=== PATIENT | male | born 1960 | race African-American/Black ===

== ENCOUNTER 2019-09-09 20:27 | Inpatient (IN) | payer MEDICARE ==
[2019-09-09] MEDS ORDERED: Dextrose 5% in Water 1,000 ML IV PRN (23:09)
[2019-09-09] MEDS ORDERED: HumaLOG 300 UNITS/3 ML VIAL SC PRN ×2 (23:09)
[2019-09-09] MEDS ORDERED: Ondansetron PF 4 MG/2 ML Vial IVP PRN (23:12)
[2019-09-09] MEDS ORDERED: Senokot S 8.6-50 MG TAB PO PRN (23:15)
[2019-09-09] MEDS ORDERED: Bisacodyl 5 MG TAB PO PRN (23:15)
[2019-09-09] MEDS ORDERED: Acetaminophen 325 MG TAB PO PRN (23:15)
[2019-09-09] MEDS ORDERED: Acetaminophen 650 MG Suppository PR PRN (23:15)
[2019-09-09] MEDS ORDERED: D5 1/2 NS w/10 mEq KCl 1,000 ML/1,000 ML BAG IV SCH (23:30)
--- NOTE | 2019-09-09 23:30 | PDOC.HHP ---
Hospitalist HPI - History of Present Illness Abdominal pain History of Present Illness: PCP: Unknown The patient is a 59/M with PMH significant for pancreatitis and DMII (on insulin ), and HLD that presents to the ER in [place] for the above complaint. The patient reports developing abdominal pain for the past month. Reports pain intensified yesterday, located epigastric, describes as aching and dull, 6/10, persistent and constant, exacerbated with eating and relieved by nothing. Reports unable to tolerate any oral intake for past 3-4 days. Denies ETOH intake. Denies vomiting and diarrhea, LBM yesterday. Denies chest pain or heart palpitations. Denies sob or cough. Denies fever or chills. Treating with gavison and PPI. ED Course: Patient was hypertensive, afebrile CT abd/pelvis + some heterogenous attenuation within pancreas wiht peripancreatic fat stranding lipase 413 ALP 176 WBC 15.9 LA 1.2 glucose 48 Given: 1L NS protonix IVP D50 amp Ativan for CT scan Allergies: Metformin and iodine Hospitalist ROS - Review of Systems Constitutional: reports: malaise. denies: fever, chills, weakness Eyes: denies: pain, vision change, conjunctivae inflammation, eyelid inflammation, redness, other ENT: denies: ear pain, ear discharge, nose pain, nose discharge, nose congestion , mouth pain, mouth swelling, throat pain, throat swelling, other Respiratory: denies: cough, dry, shortness of breath, hemoptysis, SOB with excertion, pleuritic pain, sputum, wheezing, other Cardiovascular: denies: chest pain, palpitations, orthopnea, paroxysmal noc. dyspnea, edema, light headedness, other Gastrointestinal: reports: nausea, abdominal pain (epigastric). denies: vomiting, diarrhea, constipation, melena, hematochezia Genitourinary: denies: dysuria, frequency, incontinence, hematuria, retention, other Musculoskeletal: denies: neck pain, shoulder pain, back pain Skin: denies: ivan, bruising Neurological: denies: weakness, numbness, incoordination, change in speech Hospitalist History - Past Medical History Cardiac: reports: HTN, Hyperlipidemia [employer]: reports: Peripheral neuropathy Gastrointestinal: reports: GERD Endocrine: reports: Diabetes (type II) - Past Surgical History Past Surgical History: reports: Other (scrotal, left knee, cataract surgery) - Family History Other Family History: non contributory to this case - Social History Smoking Status: Current every day smoker (1ppd x 20 years) Tobacco Type: cigarettes Alcohol: reports: None Drugs: reports: none Living Situation: Alone Occupation: Lives in [place], retired Activity level: independent ambulation - Exam General Appearance: awake alert General - other findings: uncomfortable, non toxic appearing Eye: anicteric sclera ENT: normocephalic atraumatic Neck: supple, no JVD Heart: RRR, no murmur, no gallops, no rubs, normal peripheral pulses Respiratory: CTAB, no wheezes, no rales, no ronchi, no tachypnea Gastrointestinal: soft, normal bowel sounds, no bruit, no guarding, no rigidity , tender to palpation (mildly tender), distended Gastrointestinal - other findings: no rebound tenderness Extremities: no clubbing, no edema Skin - other findings: scaly BLE Neurological: no focal deficits Musculoskeletal: normal tone, normal strength Psychiatric: normal affect, A&O x 3 Hospitalist Results - EKG Interpretation EKG: NSR, RBBB, no ST elevations - Radiology Interpretation CT scan - abdomen Status: report reviewed by me Hospitalist H&P A/P - Problem (1) Acute pancreatitis Code(s): K85.90 - ACUTE PANCREATITIS WITHOUT NECROSIS OR INFECTION, UNSP Status: Acute Assessment and Plan: Admit to the medical floor, inpatient status Expected length of stay at least 2 midnights VS stable on examination, POC glucose 108 apparently EMS started D5W IVF in route d/t BS dropping CT + hetergenous attenuation within pancreas with peripancreatic fat stranding, no abscess or necrosis Lipase 413, WBC 15.9, GLucose 48, ALP 176 LA 1.2 PMH pancreatitis (2013) NPO Will start IVF with dextrose Check RUQ US, FLP consult GI Analgesics and anti-emetics prn Will get baseline EKG and trop (2) Hypoglycemia Code(s): E16.2 - HYPOGLYCEMIA, UNSPECIFIED Status: Acute Assessment and Plan: Glucose 48 on presentation to ER Given 1amp D50 Dropped BS in route to [place] ER per EMS report Started D5W IVF Will start D51/2NS w/ potassium Accuchecks 4hr Will hold all diabetic home medications for now. (3) Dehydration Code(s): E86.0 - DEHYDRATION Status: Acute Assessment and Plan: hemconcentrated, BUN 78 Received 2L NS in ER Start IVF hydration Recheck CMP in am (4) DMII (diabetes mellitus, type 2) Status: Chronic Assessment and Plan: Patient reports lantus 90u BID Will hold for now, given hypoglycemia and NPO status Check BS q4 hours (5) HTN (hypertension) Code(s): I10 - ESSENTIAL (PRIMARY) HYPERTENSION Status: Chronic Assessment and Plan: presented with mild hypertension Will monitor bp and add prns if necessary (6) Tobacco abuse Code(s): Z72.0 - TOBACCO USE Status: Chronic Assessment and Plan: smokes 1ppd Will start NRT Will chromosomal disorders counselor on tobacco cessation - Plan Plan: Consult PT Protonix GI prophylaxis LMWH DVT prophylaxis Full Code DENNIS is daughter, Irma Barriga at [phone] Street
[2019-09-09] MEDS: Nicotine 14 MG PATCH TD SCH (23:43)
[2019-09-09 23:58] LABS: Troponin I Less than 0.010 ng/mL (< 0.028)
[2019-09-10 00:31] VITALS: BMI 42.8
[2019-09-10] MEDS: D5 1/2 NS w/10 mEq KCl 1,000 ML/1,000 ML BAG IV SCH ×3 (00:40→21:48)
[2019-09-10] MEDS: Dextrose 50% Abboject 50 ML SYRINGE SLOW IVP PRN ×2 (01:24→10:06)
[2019-09-10 01:27] LABS: Bacteria/HPF None Seen HPF (None Seen); Bilirubin Negative (Negative); Blood, Urine Negative (Negative); Clarity Clear (Clear); Glucose, Urine (Dipstick) Normal (Negative); Leukocyte Negative Leu/uL (Negative); Nitrite Negative (Negative); Protein, Urine (Dipstick) 10 mg/dL (Neg-Trace); RBC/HPF 0-3 HPF (0-3); Squamous Epithelial 0-3 HPF (0-3); Urobilinogen Normal mg/dL (Less than 2); WBC/HPF 0-3 HPF (0-3)
[2019-09-10 01:54] LABS: Urine Culture Reflex No No
[2019-09-10] MEDS: Morphine 2 MG/ML SYRINGE SLOW IVP PRN ×2 (05:05→11:51)
[2019-09-10 06:03] LABS: ALT (SGPT) 17 U/L (8-55); AST (SGOT) 21 U/L (5-34); Albumin 3.7 g/dL (3.5-5.0); Alkaline Phosphatase 174 U/L (40-110); Anion Gap 12 mmol/L (10-20); BUN (Urea Nitrogen) 10 mg/dL (8.4-25.7); Bilirubin, Total 0.8 mg/dL (0.2-1.2); Calc. Creatinine Clearance 147 mL/min (70-130); Calcium 8.9 mg/dL (7.8-10.44); Carbon Dioxide 24 mmol/L (22-29); Chloride 107 mmol/L (98-107); Cholesterol 107 mg/dl (< 200 Desired); Estimated GFR-MDRD 86; Globulin 3.7 g/dL (2.4-3.5); HDL Cholesterol 36 mg/dL (>60 Neg Risk); LDL Cholesterol, Calculated 53 mg/dL; Potassium 4.1 mmol/L (3.5-5.1); Protein, Total 7.4 g/dL (6.0-8.3); Sodium 139 mmol/L (136-145); Triglycerides 89 mg/dL (Less than 150)
[2019-09-10 06:11] LABS: Glucose 58 mg/dL (70-105)
[2019-09-10] MEDS: Famotidine/PF 20 mg/2ml Vial SLOW IVP SCH ×2 (10:07→21:35)
[2019-09-10] MEDS: Enoxaparin Sodium 40 MG/0.4 ML SYRINGE SC SCH (10:07)
--- NOTE | 2019-09-10 10:15 | ULT ---
GALLBLADDER ULTRASOUND: HISTORY: Pancreatitis, concern for obstruction. COMPARISON: 09/09/2019 CT. FINDINGS: The gallbladder is demonstrated without evidence of gallstones or gallbladder wall thickening. Commo n bile duct 0.5 cm. Liver echogenicity is somewhat coarse, evidence for nonspecific hepatic parenchy mal process. The pancreas is somewhat prominent in size and somewhat heterogeneous in attenuation wi th minimal dilatation of the pancreatic duct up to 0.5 cm in the head and neck region. No significan t abscess or abnormal fluid collection. IMPRESSION: Prominent region of pancreas with mildly dilated pancreatic duct. No evidence of gallstones or commo n duct dilatation. Heterogeneous liver echogenicity. POS: [facility]
[2019-09-10 11:32] LABS: #Basophils 0.2 thou/uL (0.0-0.2); #Eosinphils 0.9 thou/uL (0.0-0.7); #Neutrophils 7.1 thou/uL (1.40-6.50); %Basophils 1.1 % (0.0-1.0); %Eosinophils 6.6 % (0.0-10.0); %Lymphocytes 35.4 % (21.0-51.0); Hemoglobin 18.8 g/dL (14.0-18.0); Mean Corpuscular HGB CONC 30.4 g/dL (32.0-36.0); Mean Corpuscular Hemoglobin 31.2 pg (27.0-31.0); Mean Platelet Volume 7.7 fL (7.4-10.4); Platelet Count 454 thou/uL (130-400); RBC Distribution Width 14.1 % (11.5-14.5); Red Blood Cell (RBC) Count 6.03 mill/uL (4.70-6.10); White Blood Cell (WBC) Count 14.2 thou/uL (4.8-10.8)
--- NOTE | 2019-09-10 18:33 | PDOC.HOSPP ---
- Subjective Encounter Date: 09/10/19 Encounter Time: 18:25 Subjective: f/u for acute pancreatitis on NPO status and IVF's. States no abd pain currently and wants to eat something. No N/V or diarrhea. - Objective Vital Signs & Weight: Vital Signs (12 hours) Temp Pulse Resp BP Pulse Ox 09/10/19 16:00 98.4 F 71 20 145/88 H 99 09/10/19 11:04 98.6 F 67 18 161/97 H 93 L 09/10/19 08:04 98.1 F 61 20 115/56 L 95 09/10/19 08:00 93 L 09/10/19 06:41 98.4 F 83 28 H 153/98 H 95 Weight Admit Weight 307 lb Weight 307 lb 3.2 oz I&O: 09/09/19 09/10/19 09/11/19 06:59 06:59 06:59 Intake Total 700 Balance 700 Result Diagrams: 09/10/19 05:10 09/10/19 05:10 Additional Labs: Accuchecks 09/10/19 09/10/19 09/10/19 18:14 15:43 15:00 POC Glucose 82 75 76 09/10/19 09/10/19 09/10/19 11:00 10:07 05:46 POC Glucose 99 61 L 73 09/10/19 09/10/19 09/09/19 02:05 01:17 22:18 POC Glucose 111 H 60 L 109 Laboratory Tests 09/09/19 18:40 Lipase 413 H Radiology Reviewed by me: Yes (CT abd - peripancreatic stranding, no obstruction noted) Hospitalist ROS - Medication Medications: Active Medications Generic Name Dose Route Start Last Admin Trade Name Freq PRN Reason Stop Dose Admin Dextrose/Water 25 gm 09/09/19 23:09 09/10/19 10:06 Dextrose 50% SLOW IVP 25 gm PRN PRN Administration Hypoglycemia Enoxaparin Sodium 40 mg 09/10/19 09:00 09/10/19 10:07 Lovenox SC 40 mg 0900 DALILA Administration Famotidine 20 mg 09/10/19 09:00 09/10/19 10:07 Pepcid SLOW IVP 20 mg Q12HR DALILA Administration Potassium Chloride/Dextrose/Sod Cl 1,000 ml in 1,000 mls @ 100 mls/hr 23:59 09/10/19 10:58 D5 1/2 Ns W/10 Meq Kcl IV 1,000 mls .Q10H DALILA Administration Morphine Sulfate 2 mg 09/09/19 23:12 09/10/19 11:51 Morphine SLOW IVP 2 mg Q4H PRN Administration Moderate Pain (4-6) Nicotine 14 mg 09/09/19 23:59 09/09/19 23:43 Nicoderm Patch TD Not Given Q24HR DALILA Ondansetron HCl 4 mg 09/09/19 23:12 09/10/19 11:51 Zofran IVP 4 mg Q6H PRN Administration Nausea/Vomiting - Exam General Appearance: NAD, awake alert Eye: PERRL, anicteric sclera ENT: normocephalic atraumatic, no oropharyngeal lesions Neck: supple, symmetric, no JVD, no thyromegaly Heart: RRR, no murmur, no gallops, no rubs, normal peripheral pulses Heart - other findings: S1, S2 Respiratory: CTAB, no wheezes, no rales, no ronchi, normal chest expansion Gastrointestinal: soft, non-distended, normal bowel sounds, no palpable masses Gastrointestinal - other findings: mild TTP in mid-epigastric region Extremities: no cyanosis, no clubbing, no edema Skin: normal turgor, no lesions Neurological: cranial nerve grossly intact, no new deficit Musculoskeletal: normal tone, normal strength, no muscle wasting Psychiatric: normal affect, A&O x 3 Hosp A/P (1) Acute pancreatitis Code(s): K85.90 - ACUTE PANCREATITIS WITHOUT NECROSIS OR INFECTION, UNSP Status: Acute Plan: Continue supportive and conservative mgmt, clear liquids this pm, repeat Lipase in am (2) Abdominal pain Code(s): R10.9 - UNSPECIFIED ABDOMINAL PAIN Status: Acute Qualifiers: Abdominal location: epigastric Qualified Code(s): R10.13 - Epigastric pain Plan: Secondary to #1, continue mgmt as outlined above (3) DMII (diabetes mellitus, type 2) Status: Chronic Plan: ISS, resume home insulin regimen when tolerating regular po intake (4) HTN (hypertension) Code(s): I10 - ESSENTIAL (PRIMARY) HYPERTENSION Status: Chronic Qualifiers: Hypertension type: essential hypertension Qualified Code(s): I10 - Essential (primary) hypertension Plan: Resume home BP regimen, serial BP monitoring (5) Tobacco abuse Code(s): Z72.0 - TOBACCO USE Status: Chronic Plan: Tobacco cessation resources - Plan social psychologist, out of bed/ambulate, DVT proph w/SCDs Stable currently Continue IVF's Start clear liquids OOB/ambulate Resume home BP regimen AM lab: BMP, CBC, Lipase
--- NOTE | 2019-09-10 20:30 | CON ---
DATE OF CONSULTATION: 09/10/2019 REQUESTING PROVIDER: MIRLANDE Rollins REASON FOR CONSULTATION: Acute pancreatitis. HISTORY OF PRESENT ILLNESS: Lizandro Barriga is a 59-year-old gentleman with a history of obesity and diabetes with peripheral neuropathy. He also reports having a prior history of pancreatitis back in 2012 or 2013. He does not drink alcohol, but he does smoke one pack of cigarettes per day. He reports that over the past several weeks he has been having a bit of worsening abdominal discomfort and dyspepsia symptoms, but a couple of days ago this acutely worsened. He has been having significant constant pain in the epigastrium as well as the right upper quadrant up to a 6/10 in intensity and worse postprandially. His last bowel movement was three days ago, but he has not really been eating during this time. He presented last night and on evaluation, had lipase elevation to 413, and a CT of the abdomen and pelvis showing heterogeneous pancreas with fat stranding, but no evidence of any complication. Ultrasound showed normal-appearing gallbladder and common bile duct. Other labs showed hemoconcentration with hematocrit up to 61.8, but normal LFTs. He has been getting supportive care here. IV fluids currently running at 100 mL/h. He has remained hemodynamically stable and afebrile. His pain is well controlled with morphine here. REVIEW OF SYSTEMS: Full review of systems including constitutional; head, eyes, ears, nose, throat; GI; ; cardiovascular; respiratory; musculoskeletal; and neurologic systems is negative except as noted in the HPI. PAST MEDICAL HISTORY: Diabetes with peripheral neuropathy, hyperlipidemia, hypertension, obesity, and pancreatitis in 2012. ALLERGIES: IODINE AND METFORMIN. HOME MEDICATIONS: 1. Gaviscon p.r.n. 2. Pantoprazole 40 mg daily. 3. Gabapentin. 4. Insulin Lantus 100 units twice daily. 5. Potassium chloride 20 mEq daily. 6. Omeprazole 20 mg daily. 7. Furosemide 40 mg b.i.d. 8. Zetia 10 mg daily. 9. Amlodipine 10 mg daily. 10. Lisinopril 40 mg daily. 11. Aspirin 325 mg daily. 12. Pravastatin 40 mg at bedtime. FAMILY HISTORY: Noncontributory. SOCIAL HISTORY: The patient does smoke one pack of cigarettes per day for the past 20 years. No alcohol or drug use. PHYSICAL EXAMINATION: VITAL SIGNS: Temperature 98.6, blood pressure 161/97, pulse 67, and 93% oxygen saturation on room air. GENERAL: A 59-year-old man, lying in bed comfortably, in no distress. SKIN: No jaundice. No rashes were palpable. HEART: Regular rate and rhythm. No murmur appreciated. LUNGS: Clear to auscultation bilaterally. EYES: No scleral icterus. Extraocular movements intact. ENT: Mucous membranes moist. No oral lesions. LYMPH: No submandibular or supraclavicular lymphadenopathy. THYROID: Nontender to palpation. ABDOMEN: Obese. Bowel sounds are hypoactive. Soft. Mild tenderness to palpation in the epigastrium, but no guarding or rebound tenderness. EXTREMITIES: No peripheral edema. VESSELS: Radial pulses 2+ bilaterally. NEUROLOGIC: Cranial nerves 2 through 12 intact bilaterally. No focal deficits. LABORATORY STUDIES: WBC 14.2, hemoglobin 18.8, hematocrit 61.8, platelets 454. Sodium 139, potassium 4.1, BUN 10, creatinine 1.07, glucose 99. LFTs all normal with total bilirubin 0.8, alkaline phosphatase 174, AST 21, ALT 17, and albumin 3.7. Urinalysis negative. Troponin negative. Triglycerides only 89. IMAGING STUDIES: CT of the abdomen and pelvis showed heterogeneous attenuation of the pancreas with some fat stranding. There is some stable peripancreatic lymphadenopathy, with no significant change since 2012. There was no evidence of complications such as necrosis or pseudocyst formation. Abdominal ultrasound shows normal appearing gallbladder and common bile duct of 5 mm. Coarse liver echotexture and prominent pancreas with some minimal pancreatic ductal dilation of 5 mm at the head and neck. ASSESSMENT AND PLAN: 1. Acute pancreatitis, recurrent. 2. Dehydration, reflected by hemoconcentration on admission. The etiology of the patient's pancreatitis does not appear biliary in origin with normal LFTs, normal-appearing gallbladder, and common bile duct on imaging. He does not drink alcohol. None of his medications are easily identified as the culprit. His triglycerides are normal. I am going to call this idiopathic pancreatitis for now. I do think that since this is a recurrent episode and he does have some evidence of mild pancreatic ductal dilation on ultrasound imaging, that he would benefit from referral for endoscopic ultrasound in the outpatient setting once this episode has resolved. More acutely, he is getting adequate fluid resuscitation, remains hemodynamically stable and lab parameters should remain favorable. Trend CBC, CMP, and lipase tomorrow. Continue with analgesia and antiemetics as needed. I did discuss the patient needs to remain n.p.o. at this point, with plan to advance diet once pain medication requirement has lessened. He also needs to quit using tobacco. Thank you for the consultation. GI can follow along with you. Job ID: [id number]
[2019-09-10] MEDS: Gabapentin 300 MG CAP PO SCH (21:35)
[2019-09-10] MEDS: Nicotine 14 MG PATCH TD SCH (23:11)
[2019-09-11 05:55] LABS: #Basophils 0.2 thou/uL (0.0-0.2); #Lymphocytes 4.2 thou/uL (1.20-3.40); #Neutrophils 4.1 thou/uL (1.40-6.50); %Basophils 1.6 % (0.0-1.0); %Eosinophils 9.8 % (0.0-10.0); %Lymphocytes 39.9 % (21.0-51.0); %Monocytes 9.4 % (0.0-10.0); %Neutrophils 39.3 % (42.0-75.0); Hemoglobin 18.4 g/dL (14.0-18.0); Mean Corpuscular HGB CONC 31.6 g/dL (32.0-36.0); Mean Platelet Volume 7.1 fL (7.4-10.4); Platelet Count 403 thou/uL (130-400); RBC Distribution Width 13.8 % (11.5-14.5); Red Blood Cell (RBC) Count 5.73 mill/uL (4.70-6.10); White Blood Cell (WBC) Count 10.4 thou/uL (4.8-10.8)
[2019-09-11 06:14] LABS: Anion Gap 9 mmol/L (10-20); BUN (Urea Nitrogen) 10 mg/dL (8.4-25.7); Calc. Creatinine Clearance 132 mL/min (70-130); Calcium 8.9 mg/dL (7.8-10.44); Carbon Dioxide 25 mmol/L (22-29); Chloride 105 mmol/L (98-107); Estimated GFR-MDRD 76; Glucose 149 mg/dL (70-105); Lipase 79 U/L (8-78); Potassium 4.4 mmol/L (3.5-5.1); Sodium 135 mmol/L (136-145)
[2019-09-11] MEDS: D5 1/2 NS w/10 mEq KCl 1,000 ML/1,000 ML BAG IV SCH ×2 (07:19→09:14)
[2019-09-11 07:24] VITALS: BP 146/82; TEMP 97.7
[2019-09-11] MEDS ORDERED: Aspirin 325 mg Enteric Coated Tablet PO SCH (09:00)
[2019-09-11] MEDS ORDERED: Amlodipine 5 MG TAB PO SCH (09:00)
[2019-09-11] MEDS ORDERED: Lisinopril 20 MG TAB PO SCH (09:00)
[2019-09-11] MEDS: Gabapentin 300 MG CAP PO SCH (09:09)
[2019-09-11] MEDS: Enoxaparin Sodium 40 MG/0.4 ML SYRINGE SC SCH (09:10)
[2019-09-11] MEDS: Famotidine/PF 20 mg/2ml Vial SLOW IVP SCH (09:11)
--- NOTE | 2019-09-11 12:55 | DIS ---
DATE OF ADMISSION: 09/09/2019 DATE OF DISCHARGE: 09/11/2019 DISCHARGE DIAGNOSES: 1. Acute pancreatitis, idiopathic, recurrent. 2. Abdominal pain secondary to acute pancreatitis, resolving. 3. Diabetes mellitus, type 2, insulin requiring. 4. Hypertension, stable. 5. Tobacco abuse. CONSULTATIONS: Dr. Edward with [facility]. PERTINENT LABORATORY AND X-RAY FINDINGS: LFTs within normal limits. Albumin 3.7. Triglycerides 89. Lipase ranged between 79 to 413. CBC showed a white blood cell count ranging between 10.[address] of the abdomen and pelvis dated 09/09/2019, showed no evidence for abscess, necrosis, or pseudocyst. Gallbladder unremarkable. Peripancreatic lymph nodes noted. Abdominal ultrasound dated 09/10/2019, showed prominent region of the pancreas with mildly dilated pancreatic duct. No gallstones or common bile duct dilation. Heterogeneous liver echogenicity. HOSPITAL COURSE: The patient initially admitted after presenting with increased abdominal pain with associated elevated lipase concerning for acute pancreatitis. The patient was placed on n.p.o. status and given IV fluids as well as pain medication with overall improving lipase trend with conservative management. The patient underwent imaging including CT and ultrasound modalities showing mild pancreas inflammation without evidence of obstructive process. No specific intervention recommended currently, however, the patient may need additional endoscopic ultrasound on an outpatient basis. The patient was advanced from clear liquids, tolerating regular intake and overall remained clinically stable. I have examined the patient at the time of discharge and discussed followup instructions. The patient verbalized understanding and in agreement and ready for discharge on 09/11/2019. DISCHARGE MEDICATIONS: 1. Norvasc 5 mg p.o. daily. 2. Enteric-coated aspirin p.o. daily. 3. Zetia 10 mg p.o. daily. 4. Lasix 40 mg p.o. b.i.d. 5. Gabapentin 600 mg p.o. b.i.d. 6. Glipizide 10 mg p.o. b.i.d. 7. Glargine 90 units subcutaneously b.i.d. 8. Lisinopril 40 mg p.o. daily. 9. Omeprazole 20 mg p.o. daily. 10. Protonix 40 mg p.o. daily. 11. K-Dur 20 mEq p.o. daily. 12. Pravachol 80 mg p.o. at bedtime. FOLLOWUP: The patient may follow up with his primary care provider, Dr. Matthew within 7 days of discharge. The patient may follow up with Dr. Kyle Edward with [facility] and to call his office for appointment, time, and date. CONDITION ON DISCHARGE: Stable. ACTIVITY: Ad-mj. DIET: Heart healthy and ADA, low-fat diet recommended. CODE STATUS: Full. DISPOSITION: Home on 09/11/2019. TIME SPENT: Total time preparing and coordinating discharge, 32 minutes. Job ID: [id number]
== END 2019-09-11 12:33 | disposition home or self-care (01) | DRG 439 ==
LOC: T4-A 20:27
PROVIDERS: ADMIT Hospitalist; ATTEND Hospitalist
DX: K85.90 Acute pancreatitis without necrosis or infection, unspecified (principal); Z68.41 Body mass index [BMI] 40.0-44.9, adult; E78.5 Hyperlipidemia, unspecified; I10 Essential (primary) hypertension; K21.9 Gastro-esophageal reflux disease without esophagitis; F17.210 Nicotine dependence, cigarettes, uncomplicated; E66.9 Obesity, unspecified; E86.0 Dehydration; E11.649 Type 2 diabetes mellitus with hypoglycemia without coma; K86.1 Other chronic pancreatitis; E11.40 Type 2 diabetes mellitus with diabetic neuropathy, unspecified; Z98.41 Cataract extraction status, right eye; Z98.42 Cataract extraction status, left eye; Z79.4 Long term (current) use of insulin
CPT/HCPCS: 36415; 36416; 76705; 80048; 80053; 80061; 81001; 83690; 84484; 85025; 93005; 93010; J1650; J2270; J2405; S0028

== ENCOUNTER 2025-02-15 00:16 | Inpatient (IN) | payer OTHER ==
[2025-02-15 00:42] LABS: #Basophils 0.16 10x3/uL (0.0-0.2); #Eosinophils 0.40 10x3/uL (0.0-0.7); #Monocytes 1.17 10x3/uL (0.11-0.59); #Neutrophils 9.24 10x3/uL (1.40-6.50); %Basophils 1.1 % (0.0-1.0); %Eosinophils 2.7 % (0.0-10.0); %Lymphocytes 25.4 % (21.0-51.0); %Monocytes 7.9 % (0.0-10.0); %Neutrophils 62.6 % (42.0-75.0); Hematocrit 49.4 % (42.0-52.0); Hemoglobin 16.9 g/dL (14.0-18.0); Mean Corpuscular Hemoglobin 32.6 pg (27.0-31.0); Mean Corpuscular Volume 95.2 fL (78.0-98.0); Platelet Count 423 10x3/uL (130-400); Red Blood Cell (RBC) Count 5.19 mill/uL (4.70-6.10); White Blood Cell (WBC) Count 14.77 10x3/uL (4.8-10.8)
[2025-02-15 00:59] LABS: Actual Bicarbonate (HCO3v) 21.8 mEq/L (22-28); Base Excess -6.9 mEq/L (-2.0 to +3.0); Calcium, Ionized (venous) 1.17 mmol/L (1.16-1.32); Chloride (VBG) 93 mmol/L (98-106); Hematocrit-VBG 57 % (42.0-52.0); Hemoglobin (Hb) 19.3 g/dL (13.1-17.2); Potassium (VBG) 4.06 mmol/L (3.70-5.30); Sodium 131 mmol/L (133-146)
[2025-02-15] MEDS ORDERED: Ondansetron PF 4 MG/2 ML Vial ONE (01:00)
[2025-02-15 02:22] LABS: CK (CPK) 117 U/L (30-200); Lipase 203 U/L (8-78)
[2025-02-15 02:34] LABS: Globulin 3.6 g/dL (2.4-3.5)
[2025-02-15 02:35] LABS: Anion Gap 19 mmol/L (10-20); Carbon Dioxide 20 mmol/L (23-31)
[2025-02-15 02:36] LABS: Alkaline Phosphatase 189 U/L (40-110); Bilirubin, Total 0.3 mg/dL (0.3-1.2)
[2025-02-15 02:37] LABS: BUN (Urea Nitrogen) 16 mg/dL (8.4-25.7); Calc. Creatinine Clearance 0 mL/min (70-130)
[2025-02-15 02:39] LABS: ALT (SGPT) 10 U/L (Less than 45); AST (SGOT) 20 U/L (11-34)
[2025-02-15 02:45] LABS: Bacteria/HPF None Seen HPF (None Seen); CAUTI Indications for Culture Pelvic or flank pain; Glucose, Urine (Dipstick) Greater than 1000 mg/dL (Negative); Leukocyte Negative Leu/uL (Negative); Protein, Urine (Dipstick) Negative (Neg-Trace); RBC/HPF 0-3 HPF (0-3); Specific Gravity, Urine 1.029 (1.002-1.036); WBC/HPF 0-3 HPF (0-3)
[2025-02-15 02:46] LABS: Urine Culture Reflex No No
[2025-02-15 02:50] LABS: Chloride 93 mmol/L (98-107); Potassium 4.6 mmol/L (3.5-5.1); Sodium 127 mmol/L (136-145)
[2025-02-15 02:53] LABS: Albumin 3.1 g/dL (3.1-4.5); Calcium 9.1 mg/dL (7.6-10.4); Glucose 860 mg/dL (80-115)
[2025-02-15 03:02] LABS: INR-International Normal Ratio 1.2; PTT 29.6 sec (22.9-36.1); Prothrombin Time 15.1 sec (12.0-14.7)
[2025-02-15] MEDS ORDERED: Heparin 5,000 UNITS/ML VIAL ONE (03:24)
[2025-02-15] MEDS ORDERED: INSULIN REGULAR IN 0.9 % NACL 100 ML ONE (03:26)
[2025-02-15] MEDS ORDERED: NS 0.9% w/ 20 MEQ KCL 1,000 ML ONE ×2 (03:51→06:02)
[2025-02-15] MEDS ORDERED: NS 0.9% w/ 20 MEQ KCL 1,000 ML IV PRN (04:32)
[2025-02-15] MEDS ORDERED: D5 1/2 NS w/20 mEq KCL 1,000 ML IV PRN (04:32)
[2025-02-15] MEDS ORDERED: Dextrose 50% Abboject 50 ML SYRINGE SLOW IVP PRN ×2 (04:32→08:46)
[2025-02-15] MEDS ORDERED: Acetaminophen 325 MG TAB PO PRN (04:34)
[2025-02-15] MEDS ORDERED: Calcium Carbonate 500 MG ChewTAB PO PRN (04:34)
[2025-02-15] MEDS ORDERED: Ondansetron PF 4 MG/2 ML Vial IVP PRN (04:34)
[2025-02-15] MEDS ORDERED: Heparin 10,000 UNITS/ 10 ML VIAL SLOW IVP SCH (04:45)
[2025-02-15] MEDS ORDERED: INSULIN REGULAR IN 0.9 % NACL 100 ML IVPB SCH (04:45)
[2025-02-15 05:54] LABS: Hematocrit 51.6 % (42.0-52.0); Hemoglobin 17.5 g/dL (14.0-18.0); Platelet Count 223 10x3/uL (130-400)
[2025-02-15 06:38] LABS: PTT Greater than 250.0 sec (22.9-36.1)
[2025-02-15 06:58] LABS: Anion Gap 18 mmol/L (10-20); BUN (Urea Nitrogen) 15 mg/dL (8.4-25.7); Calc. Creatinine Clearance 0 mL/min (70-130); Calcium 9.2 mg/dL (7.8-10.44); Carbon Dioxide 21 mmol/L (23-31); Chloride 99 mmol/L (98-107); Glucose 497 mg/dL (80-115); Potassium 3.9 mmol/L (3.5-5.1); Sodium 134 mmol/L (136-145)
[2025-02-15] MEDS: NS 0.9% w/ 20 MEQ KCL 1,000 ML IV PRN (08:14)
[2025-02-15] MEDS ORDERED: Glucagon 1 MG/ML KIT IM PRN (08:46)
[2025-02-15 08:57] VITALS: BMI 35.0
[2025-02-15 09:53] LABS: Anion Gap 16 mmol/L (10-20); BUN (Urea Nitrogen) 14 mg/dL (8.4-25.7); Calc. Creatinine Clearance 72 mL/min (70-130); Calcium 9.7 mg/dL (7.8-10.44); Carbon Dioxide 23 mmol/L (23-31); Chloride 104 mmol/L (98-107); Glucose 239 mg/dL (80-115); Potassium 3.8 mmol/L (3.5-5.1); Sodium 139 mmol/L (136-145)
[2025-02-15 10:14] LABS: Osmolality, Serum 299 mOsm/kg (280-301)
[2025-02-15] MEDS ORDERED: Iopamidol 370 76% 100 ML VIAL ONE (11:11)
[2025-02-15] MEDS: Ezetimibe 10 MG TAB PO SCH (11:20)
[2025-02-15] MEDS: NS 0.9% w/ 20 MEQ KCL 1,000 ML/1,000 ML BAG IV SCH (11:20)
[2025-02-15] MEDS: Pantoprazole 40 MG DR.TAB PO SCH (11:20)
[2025-02-15] MEDS: diphenhydrAMINE 25 MG CAP PO SCH (11:58)
[2025-02-15] MEDS ORDERED: Adenosine 6 mg (2 mL) VIAL ONE (12:00)
[2025-02-15] MEDS ORDERED: Heparin 10,000 UNITS/ 10 ML VIAL ONE (12:01)
[2025-02-15] MEDS ORDERED: Lidocaine 1% (PF) 30 ML VIAL ONE (12:01)
[2025-02-15] MEDS ORDERED: PHENYLEPHRINE-NS 100 MCG/ML 10 ML SYRINGE ONE (12:01)
[2025-02-15] MEDS ORDERED: Nitroglycerin 50 MG/250 ML BOT 0 ML ONE (12:01)
[2025-02-15] MEDS ORDERED: Iopamidol-370 76% 500 ML MDV (1 ML CHARGE) ONE (14:28)
[2025-02-15] MEDS: PNEUMOC 20-VAL CONJ-DIP CRM/PF 0.5 ML SYRINGE IM ONE (16:52)
[2025-02-15] MEDS: FLU (Fluarix Triv) 25-26 (6MOS UP)/PF 45 MCG/0.5 ML Syringe IM ONE (16:52)
[2025-02-16 08:02] VITALS: TEMP 98.3
[2025-02-16 12:23] VITALS: BP 120/79
[2025-02-16] MEDS ORDERED: Aspirin 81 mg Enteric Coated Tablet PO SCH (15:42)
[2025-02-17] MEDS ORDERED: Aspirin 81 mg Enteric Coated Tablet PO SCH (09:00)
== END 2025-02-16 14:45 | disposition home or self-care (01) | DRG 252 ==
LOC: ERS 00:16 → ERHOLD 04:53 → CCU 06:36 → IMCU/EMU 22:56 → T4-A 02-16 02:43
PROVIDERS: ADMIT Student in an Organized Health Care Education/Training Program; ATTEND Internal Medicine
PROC: B41D1ZZ Fluoroscopy of Aorta and Bilateral Lower Extremity Arteries using Low Osmolar Contrast (ICD-10-PCS; principal; 2025-02-15)
PROC: 047K3Z1 Dilation of Right Femoral Artery using Drug-Coated Balloon, Percutaneous Approach (ICD-10-PCS; 2025-02-15)
PROC: 047T3ZZ Dilation of Right Peroneal Artery, Percutaneous Approach (ICD-10-PCS; 2025-02-15)
PROC: 3E02340 Introduction of Influenza Vaccine into Muscle, Percutaneous Approach (ICD-10-PCS; 2025-02-15)
PROC: 3E0234Z Introduction of Serum, Toxoid and Vaccine into Muscle, Percutaneous Approach (ICD-10-PCS; 2025-02-15)
DX: E11.51 Type 2 diabetes mellitus with diabetic peripheral angiopathy without gangrene (principal); I21.A1 Myocardial infarction type 2; N18.4 Chronic kidney disease, stage 4 (severe); E87.20 Acidosis, unspecified; K86.1 Other chronic pancreatitis; E11.00 Type 2 diabetes mellitus with hyperosmolarity without nonketotic hyperglycemic-hyperosmolar coma (NKHHC); E11.42 Type 2 diabetes mellitus with diabetic polyneuropathy; W19.XXXA Unspecified fall, initial encounter; K21.9 Gastro-esophageal reflux disease without esophagitis; E66.9 Obesity, unspecified; I12.9 Hypertensive chronic kidney disease with stage 1 through stage 4 chronic kidney disease, or unspecified chronic kidney disease; I77.1 Stricture of artery; I70.201 Unspecified atherosclerosis of native arteries of extremities, right leg; Z88.8 Allergy status to other drugs, medicaments and biological substances; Z91.041 Radiographic dye allergy status; Z79.899 Other long term (current) drug therapy; Z79.82 Long term (current) use of aspirin; Z79.4 Long term (current) use of insulin; Z79.84 Long term (current) use of oral hypoglycemic drugs; Z23 Encounter for immunization; E78.5 Hyperlipidemia, unspecified; E11.22 Type 2 diabetes mellitus with diabetic chronic kidney disease
CPT/HCPCS: 36247; 36415; 36416; 37224; 37228; 71045; 75625; 75635; 75710; 75774; 80053; 81001; 82010; 82550; 82805; 83036; 83605; 83690; 83930; 84484; 85025; 85347; 85610; 85730; 87040; 93005; 93010; 94760; 96365; 96366; 96368; 96375; 96376; 99152; 99153; C1725; C1760; C1769; C1887; C1894; C2623; J0153; J0169; J0461; J1644; J1815; J2003; J2250; J2405; J2919; J3010; J3480; Q9967